=== PATIENT | female | born 1995 | race Caucasian/White ===

== ENCOUNTER → 2020-09-24 13:29 | Outpatient (CLI) | payer OTHER, SELFPAY ==
--- NOTE | 2020-09-24 | DI.ECHO.S_ITS ---
[facility]---------+ [facility] +---------+ : : [address] : [place] : : : : [id number] : : : : Phone: [phone]+ Echocardiogram Report + + :Name: MATTIE LIRIANO Study Date: 09/24/2020 Height: 67 in : :[facility] ReadingLocation: Weight: 145 lb : : Gender: Female BSA: 1.8 m2 : :: 1995 Age: 25 yrs BP: 135/63 mmHg: :Reason For Study: Mitral Valve- Regurgitation : :Ordering Physician: MARAL, : :JOEY Marquez Performed By: Carlos Fields : :Referring: JOEY ALICIA : + + Interpretation Summary The ejection fraction is estimated to be 55-60%. There is mild mitral regurgitation. There is mild tricuspid regurgitation. The right ventricular systolic pressure is estimated to be at least 21 mmHg based on an estimated right atrial pressure of 3 mm Hg. Procedure: A two-dimensional transthoracic echocardiogram with color flow and Doppler was performed. The study quality was technically adequate. There is no prior echocardiogram noted for this patient. The patient was in sinus rhythm with heart rates between 58-72 bpm during the exam. Left Ventricle: The left ventricle is normal in size and wall thickness. Left ventricular systolic function is normal. The ejection fraction is estimated to be 55-60%. There are no focal wall motion abnormalities. Diastolic parameters suggest probable normal left ventricular diastolic function and normal filling pressures. Right Ventricle: The right ventricle is normal in size and function. Atria: Both atria are normal in size. There is no Doppler evidence for an interatrial shunt. Mitral Valve: The mitral valve leaflets are slightly calcified. There is mild mitral regurgitation. Aortic Valve: The aortic valve is normal in structure and function. No aortic regurgitation is present. Tricuspid Valve: The tricuspid valve is normal in structure and function. There is mild tricuspid regurgitation. The right ventricular systolic pressure is estimated to be at least 21 mmHg based on an estimated right atrial pressure of 3 mm Hg. Pulmonic Valve: The pulmonic valve is normal in structure and function. There is mild pulmonic regurgitation. Great Vessels: The aortic root is normal size. The dimensions of the ascending aorta are normal. The IVC is of normal diameter and collapses greater than 50% with a sniff. This suggests a low right atrial pressure of 3 mm Hg. Pericardium/ Pleura There is no pericardial effusion. There is no pleural effusion. MMode/2D Measurements & Calculations LVIDd: 5.1 cm LVOT diam: 1.9 cm LVIDs: 3.3 cm Ao root diam: 2.6 cm FS: 34.8 % asc Aorta Diam: 2.4 cm IVSd: 0.64 cm LVPWd: 0.57 cm LV alonso. diameter/BSA (cm/m^2): 2.9 LV sys. diameter/BSA (cm/m^2): 1.9 LA A2 area: 11.4 cm2 RA long axis: 3.5 cm LA A4 area: 9.7 cm2 RA area: 10.1 cm2 LA length (vol): 3.6 cm RA vol: 25.0 ml LA vol: 26.3 ml RA : 14.2 ml/m2 LA vol index: 14.9 ml/m2 IVC diam: 1.9 cm RVD1 (basal): 2.9 cm TAPSE: 2.2 cm Doppler Measurements & Calculations Ao V2 max: 134.6 cm/sec LVOT Max Milad: 114.6 cm/sec Ao V2 mean: 102.9 cm/sec LV V1 max P.3 mmHg Ao max P.2 mmHg LV V1 VTI: 23.3 cm Ao mean P.6 mmHg FLORIN(I,D): 2.3 cm2 Ao V2 VTI: 27.5 cm FLORIN(V,D): 2.3 cm2 sev ratio: 0.85 FLORIN indexed to BSA (cm^2/m^2): 1.3 MV E max milad: 64.3 cm/sec TR max milad: 210.9 cm/sec MV A max milad: 43.2 cm/sec TR max P.8 mmHg MV E/A: 1.5 PA V2 max: 100.4 cm/sec Med Peak E' Milad: 14.8 cm/sec PA V2 mean: 77.0 cm/sec E/E' med: 4.3 PA mean P.6 mmHg Lat Peak E' Milad: 23.3 cm/sec PA pr(Accel): 29.2 mmHg E/E' lat: 2.8 E/e' average: 3.5 MV dec time: 0.34 sec SV(LVOT): 63.4 ml Reading Physician:03:17 PM
== END ==
PROVIDERS: Referring Provider Nurse Practitioner; Visit Provider Nurse Practitioner
DX: I34.0 Nonrheumatic mitral (valve) insufficiency (principal); I07.1 Rheumatic tricuspid insufficiency
CPT/HCPCS: 93306